=== PATIENT | male | born 1955 | race Caucasian/White ===

== ENCOUNTER 2018-03-22 12:40 | Day surgery (SDC) | payer OTHER ==
[~2018-03-22 12:40] MED LIST: AMBIEN5 MG PO; LIPITOR40 MG PO; OMEPRAZOLE20 M1 PO; ZIAC 2.5-6.251 EACH PO
== END 2018-03-22 19:50 | disposition home or self-care (01) ==
LOC: CIR.AMB 12:40
DX: M75.122 Complete rotator cuff tear or rupture of left shoulder, not specified as traumatic (principal); M75.22 Bicipital tendinitis, left shoulder; S46.212A Strain of muscle, fascia and tendon of other parts of biceps, left arm, initial encounter